=== PATIENT | male | born 1975 | race Hispanic/Latino ===

== ENCOUNTER 2018-03-05 21:13 | Emergency (ER) | payer MEDICAID, OTHER ==
[2018-03-05 21:25] VITALS: BP 145/90; PULSE 87; RESP 18; TEMP 98.8; O2SAT 98
[2018-03-05] MEDS ORDERED: Tetanus/Diphtheria Toxoids 0.5 ml Syringe IM ONE (21:52)
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
[2018-03-05] MEDS ORDERED: Tdap Vaccine 0.5 ml Vial (10-64 yrs) IM ONE (22:50)
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
== END 2018-03-05 23:11 | disposition home or self-care (01) ==
LOC: C.ER 21:13
DX: S80.211A Abrasion, right knee, initial encounter (principal); V13.4XXA Pedal cycle driver injured in collision with car, pick-up truck or van in traffic accident, initial encounter; Y92.410 Unspecified street and highway as the place of occurrence of the external cause